=== PATIENT | female | born 2000 | race Caucasian/White ===

== ENCOUNTER → 2021-12-21 | Day surgery (SDC) | payer OTHER, SELFPAY ==
[~2021-12-21] VITALS: Ht 165.1 cm; Wt 63.0 kg
[~2021-12-21] MED LIST: LIDOCAINE 1% MDV 20ML VIAL SQ PRN; LIDOCAINE 2% 100MG/5ML SDV (FOR ANES.) As Ordered ONE; LIDOCAINE 2% W/EPINEPHRINE 20ML VIAL **PRES FREE As Ordered ONE; LR 1,000 ML IV ONE; MIDAZOLAM INJ 2MG/2ML VIAL (J2250 PER 1MG) As Ordered ONE; ONDANSETRON 4MG/2ML VIAL As Ordered ONE; POLYSPORIN OPHTH OINT 3.5 GM As Ordered ONE; POVIDONE-IODINE 5% OPHTH PREP SOL 30ML As Ordered ONE; fentaNYL 100 MCG/2 ML INJECTION As Ordered ONE; propofoL 200 MG/20 ML VIAL As Ordered ONE
[2021-12-21 06:32] VITALS: BP 125/56
[2021-12-21 06:45] LABS: HEMATOCRIT 36.2 % (36.0-47.0); HEMOGLOBIN 12.5 g/dl (12.0-15.5); MEAN CORPUSCULAR HGB CONC 34.5 g/dl (32.0-36.5); PLATELET COUNT, AUTOMATED 243 10^3/uL (150-450); RED BLOOD COUNT 4.16 10^6/uL (4.00-5.40); WHITE BLOOD COUNT 7.4 10^3/uL (4.0-10.0)
[2021-12-21 07:19] LABS: HCG, SERUM QUALITATIVE POSITIVE (NEGATIVE)
== END | disposition home or self-care (01) ==
LOC: M SDC 06:08
PROVIDERS: ATTEND Plastic Surgery Surgery of the Hand
DX: D22.30 Melanocytic nevi of unspecified part of face (principal); Z53.09 Procedure and treatment not carried out because of other contraindication; Z33.1 Pregnant state, incidental
CPT/HCPCS: 36415; 84703; 85027; J2405

== ENCOUNTER 2022-02-22 06:00 | Day surgery (SDC) | payer OTHER ==
[~2022-02-22] VITALS: Ht 165.1 cm; Wt 63.9 kg
[~2022-02-22 06:00] MED LIST changes: -LIDOCAINE 1% MDV 20ML VIAL SQ PRN; -LIDOCAINE 2% 100MG/5ML SDV (FOR ANES.) As Ordered ONE; -LIDOCAINE 2% W/EPINEPHRINE 20ML VIAL **PRES FREE As Ordered ONE; -MIDAZOLAM INJ 2MG/2ML VIAL (J2250 PER 1MG) As Ordered ONE; -ONDANSETRON 4MG/2ML VIAL As Ordered ONE; -POLYSPORIN OPHTH OINT 3.5 GM As Ordered ONE; -POVIDONE-IODINE 5% OPHTH PREP SOL 30ML As Ordered ONE; -fentaNYL 100 MCG/2 ML INJECTION As Ordered ONE; -propofoL 200 MG/20 ML VIAL As Ordered ONE
[2022-02-22 06:43] LABS: HEMATOCRIT 35.4 % (36.0-47.0); HEMOGLOBIN 12.1 g/dl (12.0-15.5); MEAN CORPUSCULAR HEMOGLOBIN 29.3 pg (27.0-33.0); MEAN CORPUSCULAR HGB CONC 34.2 g/dl (32.0-36.5); MEAN CORPUSCULAR VOLUME 85.7 fl (80.0-96.0); PLATELET COUNT, AUTOMATED 348 10^3/uL (150-450); RED BLOOD COUNT 4.13 10^6/uL (4.00-5.40); WHITE BLOOD COUNT 8.5 10^3/uL (4.0-10.0)
[2022-02-22] MEDS ORDERED: MIDAZOLAM INJ 2MG/2ML VIAL (J2250 PER 1MG) As Ordered ONE (07:04)
[2022-02-22] MEDS ORDERED: fentaNYL 100 MCG/2 ML INJECTION As Ordered ONE (07:04)
[2022-02-22 07:05] LABS: HCG, SERUM QUALITATIVE NEGATIVE (NEGATIVE)
[2022-02-22] MEDS ORDERED: propofoL 200 MG/20 ML VIAL As Ordered ONE (07:05)
[2022-02-22] MEDS ORDERED: dexameTHASONE 4 MG/ML 1ML VIAL (J1100 PER 1MG) As Ordered ONE (07:05)
[2022-02-22] MEDS ORDERED: ONDANSETRON 4MG/2ML VIAL As Ordered ONE (07:05)
[2022-02-22] MEDS ORDERED: LIDOCAINE 2% 100MG/5ML SDV (FOR ANES.) As Ordered ONE (07:05)
[2022-02-22] MEDS ORDERED: ROCURONIUM BROMIDE 50 MG/5 ML VIAL As Ordered ONE (07:05)
[2022-02-22] MEDS ORDERED: LIDOCAINE 2% W/EPINEPHRINE 20ML VIAL **PRES FREE As Ordered ONE (07:18)
[2022-02-22] MEDS ORDERED: GENTAMICIN SULF 80MG/2ML VIAL As Ordered ONE (07:19)
[2022-02-22] MEDS ORDERED: POVIDONE-IODINE 5% OPHTH PREP SOL 30ML As Ordered ONE (07:42)
[2022-02-22] MEDS ORDERED: SUGAMMADEX SODIUM 500 MG/5 ML VIAL (BRIDION) As Ordered ONE (07:51)
[2022-02-22] MEDS ORDERED: POLYSPORIN OPHTH OINT 3.5 GM As Ordered ONE (08:07)
[2022-02-22] MEDS ORDERED: fentaNYL 100 MCG/2 ML INJECTION IV PRN (08:45)
[2022-02-22] MEDS ORDERED: ONDANSETRON 4MG/2ML VIAL IV PRN (08:45)
[2022-02-22] MEDS ORDERED: MEPERIDINE INJ 25 MG/ML VIAL (J2175) IV PRN (08:45)
[2022-02-22] MEDS ORDERED: oxyCODONE 5MG TAB PO PRN (08:45)
[2022-02-22] MEDS ORDERED: LR 1,000 ML IV SCH (08:45)
[2022-02-22 10:17] VITALS: BP 114/70
== END 2022-02-22 10:21 | disposition home or self-care (01) ==
LOC: M SDC 06:00
PROVIDERS: ATTEND Plastic Surgery Surgery of the Hand
DX: D22.30 Melanocytic nevi of unspecified part of face (principal); G43.909 Migraine, unspecified, not intractable, without status migrainosus
CPT/HCPCS: 11441; 36415; 84703; 85027; 88305; J1100; J1580; J2250; J2405; J3010

== ENCOUNTER 2022-04-09 10:32 | Day surgery (SDC) | payer OTHER ==
[~2022-04-09] VITALS: Ht 165.1 cm; Wt 64.6 kg
[~2022-04-09 10:32] MED LIST changes: +LEVO1.5T2 PO; +LIDOCAINE 2% 100MG/5ML SDV (FOR ANES.) As Ordered ONE; -LR 1,000 ML IV ONE; +NS 1,000 ML IV ONE; +SUMA50TA2 PO; +fentaNYL 100 MCG/2 ML INJECTION As Ordered ONE; +propofoL 200 MG/20 ML VIAL As Ordered ONE
[2022-04-09 12:25] VITALS: BP 126/70
== END 2022-04-09 12:29 | disposition home or self-care (01) ==
LOC: M OPP 10:32
PROVIDERS: ATTEND Internal Medicine Gastroenterology
DX: R14.0 Abdominal distension (gaseous) (principal); R10.13 Epigastric pain
CPT/HCPCS: 43239; 88305; J3010